=== PATIENT | female | born 2000 | race Caucasian/White ===

== ENCOUNTER 2023-02-15 07:04 | Observation (INO) | payer OTHER, SELFPAY ==
[2023-02-15] VITALS (8 sets, daily range): BP systolic 103–121; BP diastolic 61–86; PULSE 83–117; RESP 16–18; TEMP 36.4–38.1; O2SAT 96–100; BMI 22.3
--- NOTE | 2023-02-15 07:29 | ED.FEVER ---
HPI - Fever General Chief Complaint: Fever Stated Complaint: fever 4 days Time Seen by Provider: 02/15/23 07:25 History of Present Illness HPI Narrative: Patient brought here by boyfriend from home for complains of fever for the past 4 days with nausea and vomiting. Has had off and on diffuse abdominal cramping. No cough cold congestion. No sore throat. Denies any sick contacts. No contaminated foods. No recent foreign travel. Patient denies any abdominal surgical history. Pain is diffuse anteriorly does not radiate. Patient denies any urinary frequency or dysuria. Pain is intermittent and waxing and waning. Denies any discomfort at this time. Patient states it feels like her menstrual cramps. Which she states is currently on her menses Related Data Home Medications Medication Instructions Recorded Confirmed desogestrel 0.15 mg-ethinyl 1 tab PO DAILY 02/16/23 02/16/23 estradiol 0.03 mg tablet (Isibloom) Previous Rx's Medication Instructions Recorded levofloxacin 750 mg tablet 750 mg PO DAILY #7 tabs 02/16/23 ondansetron 4 mg disintegrating 4 mg PO Q8H PRN nausea and 02/16/23 tablet vomiting #14 tabs Allergies Allergy/AdvReac Type Severity Reaction Status Date / Time No Known Drug Allergies Allergy Verified 02/15/23 07:30 Review of Systems Review of Systems Narrative: GENERAL: Positive chills, fatigue, malaise, fever, sweats. HEENT: negative sinus pain, ear pain, sore throat RESPIRATORY: negative dyspnea, cough CARDIOVASCULAR: negative chest pain, palpitations GASTROINTESTINAL: Pause nausea, vomiting, abdominal pain, negative diarrhea : negative dysuria, frequency, hematuria MUSCULOSKELETAL: negative muscle or bony pain SKIN: negative rash, skin lesions NEUROLOGIC: negative weakness, numbness ROS Unobtainable: All systems reviewed & are unremarkable except as noted in HPI and below Patient History Social History household members: significant other Smoking Status: Never smoker alcohol intake: current Exam Narrative Exam Narrative: GENERAL: in no distress, not toxic not dyspneic HEAD: Normocephalic. EYES: Pupils equal round ENT: Mucous membranes moist. NECK: Trachea midline. CARDIOVASCULAR: Tachycardia with Regular rate and rhythm without murmurs RESPIRATORY: Clear to auscultation. Breath sounds equal bilaterally. No wheezes, rales, or rhonchi. GASTROINTESTINAL: Abdomen soft, non-tender, no peritoneal signs, no pain out of proportion to exam. No McBurney point tenderness. No CVA tenderness. Bowel sounds are present. EXTREMITIES: No gross deformities. BACK: No flank tenderness. NEURO: AOx4. SKIN: Warm and dry PSYCH: Not anxious, is cooperative Initial Vital Signs Initial Vital Signs: Vital Signs Temperature 97.6 F 02/15/23 07:15 Pulse Rate 117 H 02/15/23 07:15 Respiratory Rate 16 02/15/23 07:15 Blood Pressure 121/86 02/15/23 07:15 Pulse Oximetry 97 02/15/23 07:15 Oxygen Delivery Method Room Air 02/15/23 07:15 Course Orders Ordered: Discontinued Medications Acetaminophen (Acetaminophen 325 Mg Tablet) 650 mg PO Q6H PRN PRN Reason: Fever/Mild Pain (1-3) Last Admin: 02/16/23 11:30 Dose: 650 mg Documented By: Admin: 02/16/23 01:29 Dose: 650 mg Documented By: Admin: 02/15/23 16:30 Dose: 650 mg Documented By: JAKE Hydrocodone Bitart/Acetaminophen (Hydrocodone/Acet 5/325 Tablet) 1 tab PO Q4H PRN PRN Reason: Pain, Moderate (4-6) Last Admin: 02/16/23 01:31 Dose: 1 tab Documented By: Admin: 02/15/23 16:31 Dose: 1 tab Documented By: Admin: 02/15/23 12:21 Dose: 1 tab Documented By: MICHELE Sodium Chloride (Normal Saline 0.9%) 1,000 mls @ 1,000 mls/hr IV BOLUS ONE Stop: 02/15/23 08:27 Last Infusion: 02/15/23 08:24 Dose: 0 mls/hr Documented By: Admin: 02/15/23 07:37 Dose: 1,000 mls/hr Documented By: ANUPAMA Sodium Chloride (Normal Saline 0.9%) 1,000 mls @ 1,000 mls/hr IV BOLUS ONE Stop: 02/15/23 09:21 Last Infusion: 02/15/23 09:25 Dose: 0 mls/hr Documented By: Admin: 02/15/23 08:28 Dose: 1,000 mls/hr Documented By: ANUPAMA Ceftriaxone Sodium 2,000 mg/ (Sodium Chloride) 100 mls @ 200 mls/hr IV NOW ONE Stop: 02/15/23 09:35 Last Infusion: 02/15/23 10:37 Dose: 0 mls/hr Documented By: Admin: 02/15/23 10:00 Dose: 200 mls/hr Documented By: ANUPAMA Sodium Chloride (Normal Saline 0.9%) 1,000 mls @ 100 mls/hr IV CONT CLAIRE Last Admin: 02/16/23 11:28 Dose: 100 mls/hr Documented By: Infusion: 02/16/23 08:42 Dose: 100 mls/hr Documented By: Admin: 02/15/23 22:42 Dose: 100 mls/hr Documented By: Infusion: 02/15/23 22:23 Dose: 0 mls/hr Documented By: Admin: 02/15/23 12:23 Dose: 100 mls/hr Documented By: MICHELE Ceftriaxone Sodium 1,000 mg/ (Sodium Chloride) 100 mls @ 200 mls/hr IV Q24H [facility] Last Infusion: 02/16/23 11:25 Dose: 0 mls/hr Documented By: Admin: 02/16/23 10:06 Dose: 200 mls/hr Documented By: DAVIDA POTASSIUM CHLORIDE IN WATER (Potassium Cl 10 Meq/100 Ml Joy) 10 meq in 100 mls @ 100 mls/hr IV Q1H CLAIRE Stop: 02/15/23 21:14 Last Admin: 02/15/23 22:34 Dose: 100 mls/hr Documented By: Infusion: 02/15/23 22:32 Dose: 0 mls/hr Documented By: Admin: 02/15/23 21:27 Dose: 100 mls/hr Documented By: Infusion: 02/15/23 21:22 Dose: 75 mls/hr Documented By: Infusion: 02/15/23 20:03 Dose: 75 mls/hr Documented By: Admin: 02/15/23 20:01 Dose: 50 mls/hr Documented By: Infusion: 02/15/23 18:50 Dose: 50 mls/hr Documented By: Infusion: 02/15/23 18:38 Dose: 50 mls/hr Documented By: Admin: 02/15/23 17:44 Dose: 100 mls/hr Documented By: JAKE Ketorolac Tromethamine (Ketorolac 30 Mg/Ml Vial) 15 mg IV NOW ONE Stop: 02/15/23 07:32 Last Admin: 02/15/23 07:37 Dose: 15 mg Documented By: ANUPAMA Lorazepam (Lorazepam 2 Mg/Ml Inj) 0.5 mg IV NOW ONE Stop: 02/15/23 17:33 Last Admin: 02/15/23 17:43 Dose: 0.5 mg Documented By: JAKE Morphine Sulfate (Morphine 4 Mg/Ml Inj) 4 mg IV NOW ONE Stop: 02/15/23 08:23 Last Admin: 02/15/23 08:28 Dose: 4 mg Documented By: ANUPAMA Naloxone HCl (Naloxone 0.4 Mg/Ml Vial) 0.2 mg IV Q2MIN PRN PRN Reason: Opiate Reversal Ondansetron HCl (Ondansetron 4 Mg/2 Ml Inj) 4 mg IV NOW PRN PRN Reason: Nausea And Vomiting Ondansetron HCl (Ondansetron 4 Mg/2 Ml Inj) 4 mg IV Q8HR PRN PRN Reason: Nausea And Vomiting Last Admin: 02/16/23 10:06 Dose: 4 mg Documented By: DAVIDA Vital Signs Vital signs: Vital Signs - 8 hr 02/15/23 07:15 Temperature 97.6 F Pulse Rate 117 H Respiratory Rate 16 Blood Pressure 121/86 Pulse Oximetry 97 Oxygen Delivery Method Room Air MDM - Fever Lab Data 02/16/23 05:14 02/16/23 05:14 Labs: Lab Results 02/15/23 02/15/23 02/15/23 Range/Units 07:18 07:26 07:26 WBC 16.0 H (4.5-11.0) X10^3/uL RBC 4.11 (4.0-5.2) X10^6/uL Hgb 10.8 L (12.0-16.0) g/dL Hct 32.8 L (36-46) % MCV 80.0 (80-100) fL MCH 26.2 (26-34) PG MCHC 32.8 (30-36) % RDW 16.1 H (11.6-14.8) % Plt Count 160 (150-400) X10^3/uL Neut % (Auto) 78.8 H (50-75) % Lymph % (Auto) 4.5 L (25-40) % [place] % (Auto) 16.4 H (3-14) % Eos % (Auto) 0.0 L (2-4) % Baso % (Auto) 0.3 (0-2) % Neut # (Auto) 15644 H (9158-2490) /uL Lymph # (Auto) 700 L (9273-8159) /uL [place] # (Auto) 2600 H (0-900) /uL Eos # (Auto) 0 (0-450) /uL Baso # (Auto) 0 (0-100) /uL Sodium 132 L (137-145) mmol/L Potassium 3.3 L (3.4-5.1) mmol/L Chloride 100 (98-107) mmol/L Carbon Dioxide 20 L (22-32) mmol/L BUN 6 L (7-17) mg/dL Creatinine 0.70 (0.52-1.04) mg/dL Estimated GFR > 60 (>60) mL/min BUN/Creatinine Ratio 8.6 (6-22) Glucose 148 H (70-100) mg/dL Lactate (0.7-2.1) mmol/L Calcium 8.9 (8.4-10.2) mg/dL Magnesium (1.6-2.3) mg/dL Total Bilirubin 0.5 (0.2-1.3) mg/dL AST 24 (14-36) IU/L ALT 20 (<35) IU/L Alkaline Phosphatase 80 (38-126) U/L Total Protein 7.1 (6.3-8.2) g/dL Albumin 3.8 (3.5-5.0) g/dL Globulin 3.3 (1.7-4.1) g/dL Albumin/Globulin Ratio 1.2 (1.0-2.8) Lipase 50 (23-300) U/L Procalcitonin (<0.5) ng/mL Urine RBC 1-5/hpf (0-5/HPF) Urine WBC 10-30/hpf H (0-5/HPF) Ur Squamous Epith Cells 1-5 /hpf (0-5/HPF) Urine Bacteria Few (2-10) H (None) Ur Culture Indicated? Specimen cultured Chlamy pneumoniae PCR (Not Detect) Adenovirus (PCR) (Not Detect) B. pertussis DNA (PCR) (Not Detecte) B.parapertussis DNA PCR (Not Detecte) Coronavirus OC43 (PCR) (Not Detect) Coronavirus HKU1 (PCR) (Not Detect) Coronavirus 229E (PCR) (Not Detect) SARS-CoV-2 (PCR) (Not Detecte) Coronavirus NL63 (PCR) (Not Detect) Human Metapneumovir PCR (Not Detect) Influenza Type A (PCR) (Not Detect) Influenza Type B (PCR) (Not Detect) M. pneumoniae (PCR) (Not Detect) Parainfluenza 1 (PCR) (Not Detect) Parainfluenza 2 (PCR) (Not Detect) Parainfluenza 3 (PCR) (Not Detect) Parainfluenza 4 (PCR) (Not Detect) RSV (PCR) (Not Detect) Entero/Rhino (PCR) (Not Detect) 02/15/23 02/15/23 02/15/23 Range/Units 07:26 07:26 07:26 WBC (4.5-11.0) X10^3/uL RBC (4.0-5.2) X10^6/uL Hgb (12.0-16.0) g/dL Hct (36-46) % MCV (80-100) fL MCH (26-34) PG MCHC (30-36) % RDW (11.6-14.8) % Plt Count (150-400) X10^3/uL Neut % (Auto) (50-75) % Lymph % (Auto) (25-40) % [place] % (Auto) (3-14) % Eos % (Auto) (2-4) % Baso % (Auto) (0-2) % Neut # (Auto) (1360-2236) /uL Lymph # (Auto) (1297-6029) /uL [place] # (Auto) (0-900) /uL Eos # (Auto) (0-450) /uL Baso # (Auto) (0-100) /uL Sodium (137-145) mmol/L Potassium (3.4-5.1) mmol/L Chloride (98-107) mmol/L Carbon Dioxide (22-32) mmol/L BUN (7-17) mg/dL Creatinine (0.52-1.04) mg/dL Estimated GFR (>60) mL/min BUN/Creatinine Ratio (6-22) Glucose (70-100) mg/dL Lactate 0.9 (0.7-2.1) mmol/L Calcium (8.4-10.2) mg/dL Magnesium 1.9 (1.6-2.3) mg/dL Total Bilirubin (0.2-1.3) mg/dL AST (14-36) IU/L ALT (<35) IU/L Alkaline Phosphatase (38-126) U/L Total Protein (6.3-8.2) g/dL Albumin (3.5-5.0) g/dL Globulin (1.7-4.1) g/dL Albumin/Globulin Ratio (1.0-2.8) Lipase (23-300) U/L Procalcitonin 1.00 H (<0.5) ng/mL Urine RBC (0-5/HPF) Urine WBC (0-5/HPF) Ur Squamous Epith Cells (0-5/HPF) Urine Bacteria (None) Ur Culture Indicated? Chlamy pneumoniae PCR (Not Detect) Adenovirus (PCR) (Not Detect) B. pertussis DNA (PCR) (Not Detecte) B.parapertussis DNA PCR (Not Detecte) Coronavirus OC43 (PCR) (Not Detect) Coronavirus HKU1 (PCR) (Not Detect) Coronavirus 229E (PCR) (Not Detect) SARS-CoV-2 (PCR) (Not Detecte) Coronavirus NL63 (PCR) (Not Detect) Human Metapneumovir PCR (Not Detect) Influenza Type A (PCR) (Not Detect) Influenza Type B (PCR) (Not Detect) M. pneumoniae (PCR) (Not Detect) Parainfluenza 1 (PCR) (Not Detect) Parainfluenza 2 (PCR) (Not Detect) Parainfluenza 3 (PCR) (Not Detect) Parainfluenza 4 (PCR) (Not Detect) RSV (PCR) (Not Detect) Entero/Rhino (PCR) (Not Detect) 02/15/23 Range/Units 07:28 WBC (4.5-11.0) X10^3/uL RBC (4.0-5.2) X10^6/uL Hgb (12.0-16.0) g/dL Hct (36-46) % MCV (80-100) fL MCH (26-34) PG MCHC (30-36) % RDW (11.6-14.8) % Plt Count (150-400) X10^3/uL Neut % (Auto) (50-75) % Lymph % (Auto) (25-40) % [place] % (Auto) (3-14) % Eos % (Auto) (2-4) % Baso % (Auto) (0-2) % Neut # (Auto) (9535-7878) /uL Lymph # (Auto) (5302-2729) /uL [place] # (Auto) (0-900) /uL Eos # (Auto) (0-450) /uL Baso # (Auto) (0-100) /uL Sodium (137-145) mmol/L Potassium (3.4-5.1) mmol/L Chloride (98-107) mmol/L Carbon Dioxide (22-32) mmol/L BUN (7-17) mg/dL Creatinine (0.52-1.04) mg/dL Estimated GFR (>60) mL/min BUN/Creatinine Ratio (6-22) Glucose (70-100) mg/dL Lactate (0.7-2.1) mmol/L Calcium (8.4-10.2) mg/dL Magnesium (1.6-2.3) mg/dL Total Bilirubin (0.2-1.3) mg/dL AST (14-36) IU/L ALT (<35) IU/L Alkaline Phosphatase (38-126) U/L Total Protein (6.3-8.2) g/dL Albumin (3.5-5.0) g/dL Globulin (1.7-4.1) g/dL Albumin/Globulin Ratio (1.0-2.8) Lipase (23-300) U/L Procalcitonin (<0.5) ng/mL Urine RBC (0-5/HPF) Urine WBC (0-5/HPF) Ur Squamous Epith Cells (0-5/HPF) Urine Bacteria (None) Ur Culture Indicated? Chlamy pneumoniae PCR Not detected (Not Detect) Adenovirus (PCR) Not detected (Not Detect) B. pertussis DNA (PCR) Not detected (Not Detecte) B.parapertussis DNA PCR Not detected (Not Detecte) Coronavirus OC43 (PCR) Not detected (Not Detect) Coronavirus HKU1 (PCR) Not detected (Not Detect) Coronavirus 229E (PCR) Not detected (Not Detect) SARS-CoV-2 (PCR) Not detected (Not Detecte) Coronavirus NL63 (PCR) Not detected (Not Detect) Human Metapneumovir PCR Not detected (Not Detect) Influenza Type A (PCR) Not detected (Not Detect) Influenza Type B (PCR) Not detected (Not Detect) M. pneumoniae (PCR) Not detected (Not Detect) Parainfluenza 1 (PCR) Not detected (Not Detect) Parainfluenza 2 (PCR) Not detected (Not Detect) Parainfluenza 3 (PCR) Not detected (Not Detect) Parainfluenza 4 (PCR) Not detected (Not Detect) RSV (PCR) Not detected (Not Detect) Entero/Rhino (PCR) Not detected (Not Detect) Point of Care Testing Test Results Negative Urine Dip Bedside Urine Glucose Negative Bedside Urine Bilirubin - Negative Bedside Urine Ketone +++ 80 Urine Specific [place] 1.015 Bedside Urine Occult Blood + Bedside Urine pH 6.0 Bedside Urine Protein +/- 15 Bedside Urine Urobilinogen - Negative Bedside Urine Nitrite - Negative Bedside Urine Leukocytes ++ [address] scan - abdomen/pelvis: Radiologist's Impression: [place] [address] CT Scan Report Signed Patient: Cecile Hernandez MR#: [id number] : 2000 Acct:[id number] Age/Sex: 22 / F Date of Service: 02/15/23 Loc: ED Accession Number: [id number] ?? Procedure: CT abdomen pelvis w con Ordering Provider: Kentrell Hicks MD PROCEDURE:? CT ABDOMEN PELVIS W CON ? INDICATIONS:? IV contrast only/abdominal pain/fever ? TECHNIQUE:? After the administration of intravenous contrast, axial sections acquired from the lung bases to the pubic symphysis.? Coronal and sagittal reformats were performed.? For radiation dose reduction, the following was used:? automated exposure control, adjustment of mA and/or kV according to patient size.? ? COMPARISON:? None. ? FINDINGS:? Image quality:? Excellent.? ? Lung bases:? Unremarkable. Heart:? No significant findings. ? ABDOMEN: Liver:? Unremarkable.? ? Gallbladder:? Unremarkable.? ? Biliary ducts:? Unremarkable.? ? Pancreas:? Unremarkable.? ? Spleen:? Unremarkable.? ? Adrenal Glands:? Unremarkable.? ? Kidneys and Ureters:? There is a delayed, somewhat striated nephrogram in the upper pole of the left kidney with an appearance of questionable edema suggesting pyelonephritis of the left kidney.? There is also similar abnormal appearance of the posterior lower pole of the left kidney, as well.? Right kidney and ureter are unremarkable.? There is no hydronephrosis. ? Stomach and Bowel:? Stomach, small bowel loops, and colon are unremarkable.? Peritoneum:? No abnormal intraperitoneal fluid.? No free air.? ? Ventral Wall: ? No hernias.? Abdominal Nodes:? No retroperitoneal or mesenteric adenopathy by size criteria.? Vessels:? Aorta and inferior vena cava are normal in size.? ? PELVIS: Pelvic Organs:? Unremarkable.? ? Bladder:? Unremarkable.? ? Pelvic Nodes: No enlarged lymph nodes.? Miscellaneous: No hernias are seen. ? ? ? Bones:? Unremarkable.? IMPRESSION:? ? 1. Acute pyelonephritis of the left kidney.? No associated hydronephrosis.? No identifiable renal stone. ? ? Dictated by: Venkatesh Velazquez M.D. on 02/15/2023 at 8:53 ? ? Approved by: Venkatesh Velazquez M.D. on 02/15/2023 at 8:56 ? [facility] Narrative Medical decision making narrative: Patient brought here by boyfriend from home for complains of fever for the past 4 days with nausea and vomiting. Has had off and on diffuse abdominal cramping. No cough cold congestion. No sore throat. Denies any sick contacts. No contaminated foods. No recent foreign travel. Patient denies any abdominal surgical history. Pain is diffuse anteriorly does not radiate. Patient denies any urinary frequency or dysuria. Pain is intermittent and waxing and waning. Denies any discomfort at this time. Patient states it feels like her menstrual cramps. Which she states is currently on her menses After history and exam CBC CMP urinalysis test viral swab normal saline Zofran Toradol [facility] CC: Fever abdominal cramping vomiting Complicating co-morbidities: Data collected from: Patient Medical records reviewed: No recent visits for this complaint Differential considered: Includes but not limited to appendicitis viral gastroenteritis UTI cholecystitis pancreatitis Exam documented above, pertinent findings include: Abdomen is soft nontender. Tachycardia likely due to dehydration Lab Test results independently reviewed as above. Pertinent findings: WBC 16 hemoglobin 10.8 hematocrit 32.8 sodium 132 potassium 3.3 BUN 6 creatinine 0.7 GFR greater than 60 viral swab negative, urinalysis WBC 10-30, urine ketone greater than 80 positive leukocytes Imaging studies independently reviewed: CT abdomen pelvis acute pyelonephritis of the left kidney. No hydronephrosis. Consultations: Reviewed with hospitalist, agrees for admission Treatments: Normal saline Zofran Toradol Re-evaluations: 9:30 a.m.. Reviewed results with patient and boyfriend. They do agree for admission for kidney infection. Pain and nausea controlled at this time. Discussion: Appropriate for admission for IV antibiotics nausea control with IV hydration and pain control. Patient agrees with treatment plan. Vital signs are stable. Antibiotics have been started in the department. IV hydration started as well. Pain is controlled as well as nausea is controlled but patient likely not able to sustain and tolerate outpatient management. Patient agrees for admission. Reviewed with hospitalist and agrees for admission. Diagnosis: Acute pyelonephritis Discharge Plan Departure Patient Disposition: Admitted as Observation Clinical Impression: Pyelonephritis Admit Date/Time: 02/15/23 10:25 Admit Provider: Raya Dominguez
[2023-02-15] MEDS: SODIUM CHLORIDE 0.9% 1,000 ML 1000 ML IV ×2 (07:37→08:28)
[2023-02-15] MEDS: KETOROLAC 30 MG/ML VIAL 15 MG IV (07:37)
[2023-02-15 07:40] LABS: Add Manual Diff / Slide Review NO; Basophils Absolute Auto 0 /uL (0-100); Basophils Percent Auto 0.3 % (0-2); Eosinophils Absolute Auto 0 /uL (0-450); Hematocrit 32.8 % (36-46); Hemoglobin 10.8 g/dL (12.0-16.0); Lymphocytes Absolute Auto 700 /uL (1100-4500); Lymphocytes Percent Auto 4.5 % (25-40); Mean Corpuscular HGB Conc 32.8 % (30-36); Mean Corpuscular Hemoglobin 26.2 PG (26-34); Monocytes Absolute Auto 2600 /uL (0-900); Monocytes Percent Auto 16.4 % (3-14); Neutrophils Absolute Auto 12600 /uL (1500-7000); Neutrophils Percent Auto 78.8 % (50-75); Platelet Count 160 X10^3/uL (150-400); Red Blood Cell Count 4.11 X10^6/uL (4.0-5.2); Red Cell Distribution Width 16.1 % (11.6-14.8)
[2023-02-15 07:56] LABS: Alanine Aminotransferase 20 IU/L (<35); Albumin 3.8 g/dL (3.5-5.0); Albumin Globulin Ratio 1.2 (1.0-2.8); Alkaline Phosphatase 80 U/L (38-126); Aspartate Aminotransferase 24 IU/L (14-36); BUN Creatinine Ratio 8.6 (6-22); Bilirubin Total 0.5 mg/dL (0.2-1.3); Blood Urea Nitrogen 6 mg/dL (7-17); Calcium 8.9 mg/dL (8.4-10.2); Carbon Dioxide 20 mmol/L (22-32); Chloride 100 mmol/L (98-107); Estimated Glomerular Filt Rate > 60 mL/min (>60); Globulin 3.3 g/dL (1.7-4.1); Glucose 148 mg/dL (70-100); HEMOLYSIS < 15 (0-50); Lipase 50 U/L (23-300); Potassium 3.3 mmol/L (3.4-5.1); Sodium 132 mmol/L (137-145); Total Protein 7.1 g/dL (6.3-8.2)
[2023-02-15 08:17] LABS: RBC Urine 1-5/HPF (0-5/HPF); Squamous Epithelial Cell Urine 1-5 /HPF (0-5/HPF); WBC Urine 10-30/HPF (0-5/HPF)
[2023-02-15 08:18] LABS: Bacteria Urine Few (2-10); Culture Indicated Urine Specimen Cultured
--- NOTE | 2023-02-15 08:22 | DI.CT.S_ITS ---
PROCEDURE: CT ABDOMEN PELVIS W CON INDICATIONS: IV contrast only/abdominal pain/fever TECHNIQUE: After the administration of intravenous contrast, axial sections acquired from the lung bases to the pubic symphysis. Coronal and sagittal reformats were performed. For radiation dose reduction, the following was used: automated exposure control, adjustment of mA and/or kV according to patient size. COMPARISON: None. FINDINGS: Image quality: Excellent. Lung bases: Unremarkable. Heart: No significant findings. ABDOMEN: Liver: Unremarkable. Gallbladder: Unremarkable. Biliary ducts: Unremarkable. Pancreas: Unremarkable. Spleen: Unremarkable. Adrenal Glands: Unremarkable. Kidneys and Ureters: There is a delayed, somewhat striated nephrogram in the upper pole of the left kidney with an appearance of questionable edema suggesting pyelonephritis of the left kidney. There is also similar abnormal appearance of the posterior lower pole of the left kidney, as well. Right kidney and ureter are unremarkable. There is no hydronephrosis. Stomach and Bowel: Stomach, small bowel loops, and colon are unremarkable. Peritoneum: No abnormal intraperitoneal fluid. No free air. Ventral Wall: No hernias. Abdominal Nodes: No retroperitoneal or mesenteric adenopathy by size criteria. Vessels: Aorta and inferior vena cava are normal in size. PELVIS: Pelvic Organs: Unremarkable. Bladder: Unremarkable. Pelvic Nodes: No enlarged lymph nodes. Miscellaneous: No hernias are seen. Bones: Unremarkable. IMPRESSION: 1. Acute pyelonephritis of the left kidney. No associated hydronephrosis. No identifiable renal stone. Dictated by: Venkatesh Velazquez M.D. on 02/15/2023 at 8:53 Approved by: Venkatesh Velazquez M.D. on 02/15/2023 at 8:56
[2023-02-15] MEDS: MORPHINE 4 MG/ML INJ IV (08:28)
[2023-02-15 08:35] LABS: Magnesium 1.9 mg/dL (1.6-2.3)
[2023-02-15 09:47] LABS: Lactate (Lactic Acid) 0.9 mmol/L (0.7-2.1)
[2023-02-15 09:50] LABS: Adenovirus Not Detected (Not Detect); B. parapertussis Not Detected (Not Detecte); Bordetella pertussis Not Detected (Not Detecte); Chlamydophila pneumoniae Not Detected (Not Detect); Coronavirus 229E Not Detected (Not Detect); Coronavirus HKU1 Not Detected (Not Detect); Coronavirus NL 63 Not Detected (Not Detect); Coronavirus OC43 Not Detected (Not Detect); Human Metapneumovirus Not Detected (Not Detect); Human Rhinovirus/Enterovirus Not Detected (Not Detect); Influenza A Not Detected (Not Detect); Influenza B Not Detected (Not Detect); Mycoplasma pneumoniae Not Detected (Not Detect); Parainfluenza Virus 1 Not Detected (Not Detect); Parainfluenza Virus 2 Not Detected (Not Detect); Parainfluenza Virus 3 Not Detected (Not Detect); Parainfluenza Virus 4 Not Detected (Not Detect); Respiratory Syncytial Virus Not Detected (Not Detect); SARS- CoV-2 Not Detected (Not Detecte)
--- NOTE | 2023-02-15 09:59 | PC.NURSE ---
Lab in to draw 2nd blood culture
[2023-02-15] MEDS: cefTRIAXone 2,000 MG in SODIUM CHLORIDE 0.9% 100 ML 200 MG IV (10:00)
[2023-02-15] MEDS: HYDROCODONE/ACET 5/325 TABLET 1 TAB PO ×2 (12:21→16:31)
[2023-02-15] MEDS: SODIUM CHLORIDE 0.9% 1,000 ML 100 ML IV ×2 (12:23→22:42)
--- NOTE | 2023-02-15 12:39 | PC.NURSE ---
Addendum entered by Renata Baca R.N. 02/15/23 18:38: Patient teary eyed and stressed out earlier when talking to the doctor. Given ativan 0.5mg for anxiety and nausea. This has been helpful to her. She is doing better. She has iv potassium infusing at 50cc/hr and tolerating this well. Patient is getting a total of 40meq potassium iv riders. Boyfriend at bedside. Original Note: Patient tearful and complains of a headache 6/10 discomfort. Ate some pudding and given 1 vicodin for comfort. Patient shivering, given warm blankets and wants to try and nap. She has NS at 100cc/hr and is tolerating this well. Will recheck her temperature soon.
[2023-02-15] MEDS: ACETAMINOPHEN 325 MG TABLET 650 MG PO (16:30)
--- NOTE | 2023-02-15 17:32 | PM.HP.1 ---
History of Present Illness History of Present Illness Chief complaint: fever 4 days Narrative: 22-year-old female with no significant medical history who presented to the emergency department with fevers, lower abdominal pain, and left flank pain. Patient reports she recently moved from [place] to [place]. She works as a kayak guide. She notes she had started a new oral contraceptive pill. She started her withdrawal cycle on Wednesday. She notes she developed some increasing abdominal pain and mild chills on Wednesday. She began feeling a bit more poorly on with low-grade fevers. Yesterday, she continued to worsen and she states she was unable to sleep last night secondary to pain. She presented to the emergency department this morning with a temp of 97.6?, heart rate 117, respiratory rate 16, BP 121/86. White blood cell count was 16.0. Hemoglobin 10.8. Platelet count 160. Sodium 132. Potassium 3.3. Chloride 100, bicarb 20, BUN 6, creatinine 0.7. Glucose was 148. LFTs were within normal limits. Procalcitonin was elevated at 1.00. UA revealed 10-30 white blood cells per high-power field, few bacteria, 1-5 red blood cells per high-powered field. Respiratory viral panel was negative. Abdominal pelvic CT revealed an acute pyelonephritis of the left kidney. No associated hydronephrosis. No stone identified. Patient was given 15 mg of IV Toradol, 2 L of normal saline, a dose of IV Zofran, and 2 g of IV Rocephin. He additionally received morphine 4 mg IV. Admission was recommended Patient reports she is feeling a bit worse than she was earlier today, but much better than last night. She is continuing to feel febrile. She is having some chills. She has tolerated a clear liquid tray now has a full liquid tray at bedside for dinner. She continues to have left flank pain. She denies any significant history of urinary tract infections. She states she will sometimes get dysuria after having ?a lot of sex?. [facility] Social History household members: significant other Smoking Status: Never smoker alcohol intake: current Comment: Past medical history: Denied Family history: Grandmother had dementia and frequent UTIs Mother had some type of renal issue that resulted in a biopsy but no diagnosis. No significant infection history Social history: As noted above, she is a kayak guide. She is a nonsmoker. Drinks occasional alcohol. Lives with her boyfriend, Felix. Meds Home Medications and Allergies Allergies Allergy/AdvReac Type Severity Reaction Status Date / Time No Known Drug Allergies Allergy Verified 02/15/23 07:30 Review of Systems Review of Systems Narrative: All other systems were reviewed negative Exam Vital Signs (past 8 hours): - 02/15/23 10:03 02/15/23 10:02 02/15/23 10:02 Temperature 98.8 F Pulse Rate 83 86 Respiratory Rate 16 Blood Pressure 103/61 103/61 Pulse Oximetry 99 99 Oxygen Delivery Method Room Air Room Air 02/15/23 10:30 02/15/23 10:30 02/15/23 12:24 Temperature 98.6 F Pulse Rate 85 Respiratory Rate Blood Pressure 104/67 Pulse Oximetry 100 Oxygen Delivery Method Oxygen Delivery Method Room Air Narrative Exam Narrative: GEN: Tearful and anxious ill-appearing adult female, Alert and oriented x3 HEENT: Normocephalic, face symmetric, pupils equal round reactive to light, extraocular movements intact, sclerae anicteric, conjunctiva clear, nares patent, oropharynx reveals an intact soft and hard palate with moist mucous membranes, dentition is fair NECK: Supple, no lymphadenopathy, thyroid without enlargement or nodularity, carotids no bruits CHEST: Respiratory excursions symmetric, clear to auscultation bilaterally CV: Regular rate and rhythm, no murmurs, rubs, gallops, PMI nondisplaced ABD: Soft, mild suprapubic and left flank tenderness,, nondistended, bowel sounds present in all 4 quadrants, no organomegaly or masses appreciated, positive left CVA tenderness EXTR: Warm, well perfused, no clubbing/cyanosis/edema SKIN: Warm and dry, without rash NEURO: Alert and oriented x3, grossly intact PSYCH: Mood and affect is within normal limits, judgment and insight are appropriate Objective Labs 02/15/23 07:26 02/15/23 07:26 Labs: Laboratory Results - last 24 hr 02/15/23 02/15/23 02/15/23 07:18 07:26 07:26 WBC 16.0 H RBC 4.11 Hgb 10.8 L Hct 32.8 L MCV 80.0 MCH 26.2 MCHC 32.8 RDW 16.1 H Plt Count 160 Neut % (Auto) 78.8 H Lymph % (Auto) 4.5 L [place] % (Auto) 16.4 H Eos % (Auto) 0.0 L Baso % (Auto) 0.3 Neut # (Auto) 48627 H Lymph # (Auto) 700 L [place] # (Auto) 2600 H Eos # (Auto) 0 Baso # (Auto) 0 Sodium 132 L Potassium 3.3 L Chloride 100 Carbon Dioxide 20 L BUN 6 L Creatinine 0.70 Estimated GFR > 60 BUN/Creatinine Ratio 8.6 Glucose 148 H Lactate Calcium 8.9 Magnesium Total Bilirubin 0.5 AST 24 ALT 20 Alkaline Phosphatase 80 Total Protein 7.1 Albumin 3.8 Globulin 3.3 Albumin/Globulin Ratio 1.2 Lipase 50 Procalcitonin Urine RBC 1-5/hpf Urine WBC 10-30/hpf H Ur Squamous Epith Cells 1-5 /hpf Urine Bacteria Few (2-10) H Ur Culture Indicated? Specimen cultured Chlamy pneumoniae PCR Adenovirus (PCR) B. pertussis DNA (PCR) B.parapertussis DNA PCR Coronavirus OC43 (PCR) Coronavirus HKU1 (PCR) Coronavirus 229E (PCR) SARS-CoV-2 (PCR) Coronavirus NL63 (PCR) Human Metapneumovir PCR Influenza Type A (PCR) Influenza Type B (PCR) M. pneumoniae (PCR) Parainfluenza 1 (PCR) Parainfluenza 2 (PCR) Parainfluenza 3 (PCR) Parainfluenza 4 (PCR) RSV (PCR) Entero/Rhino (PCR) 02/15/23 02/15/23 02/15/23 07:26 07:26 07:26 WBC RBC Hgb Hct MCV MCH MCHC RDW Plt Count Neut % (Auto) Lymph % (Auto) [place] % (Auto) Eos % (Auto) Baso % (Auto) Neut # (Auto) Lymph # (Auto) [place] # (Auto) Eos # (Auto) Baso # (Auto) Sodium Potassium Chloride Carbon Dioxide BUN Creatinine Estimated GFR BUN/Creatinine Ratio Glucose Lactate 0.9 Calcium Magnesium 1.9 Total Bilirubin AST ALT Alkaline Phosphatase Total Protein Albumin Globulin Albumin/Globulin Ratio Lipase Procalcitonin 1.00 H Urine RBC Urine WBC Ur Squamous Epith Cells Urine Bacteria Ur Culture Indicated? Chlamy pneumoniae PCR Adenovirus (PCR) B. pertussis DNA (PCR) B.parapertussis DNA PCR Coronavirus OC43 (PCR) Coronavirus HKU1 (PCR) Coronavirus 229E (PCR) SARS-CoV-2 (PCR) Coronavirus NL63 (PCR) Human Metapneumovir PCR Influenza Type A (PCR) Influenza Type B (PCR) M. pneumoniae (PCR) Parainfluenza 1 (PCR) Parainfluenza 2 (PCR) Parainfluenza 3 (PCR) Parainfluenza 4 (PCR) RSV (PCR) Entero/Rhino (PCR) 02/15/23 07:28 WBC RBC Hgb Hct MCV MCH MCHC RDW Plt Count Neut % (Auto) Lymph % (Auto) [place] % (Auto) Eos % (Auto) Baso % (Auto) Neut # (Auto) Lymph # (Auto) [place] # (Auto) Eos # (Auto) Baso # (Auto) Sodium Potassium Chloride Carbon Dioxide BUN Creatinine Estimated GFR BUN/Creatinine Ratio Glucose Lactate Calcium Magnesium Total Bilirubin AST ALT Alkaline Phosphatase Total Protein Albumin Globulin Albumin/Globulin Ratio Lipase Procalcitonin Urine RBC Urine WBC Ur Squamous Epith Cells Urine Bacteria Ur Culture Indicated? Chlamy pneumoniae PCR Not detected Adenovirus (PCR) Not detected B. pertussis DNA (PCR) Not detected B.parapertussis DNA PCR Not detected Coronavirus OC43 (PCR) Not detected Coronavirus HKU1 (PCR) Not detected Coronavirus 229E (PCR) Not detected SARS-CoV-2 (PCR) Not detected Coronavirus NL63 (PCR) Not detected Human Metapneumovir PCR Not detected Influenza Type A (PCR) Not detected Influenza Type B (PCR) Not detected M. pneumoniae (PCR) Not detected Parainfluenza 1 (PCR) Not detected Parainfluenza 2 (PCR) Not detected Parainfluenza 3 (PCR) Not detected Parainfluenza 4 (PCR) Not detected RSV (PCR) Not detected Entero/Rhino (PCR) Not detected Assessment & Plan Assessment & Plan narrative: 1. Left-sided acute pyelonephritis UA was not done but a point of care dipstick was which was consistent with UTI. Will send a UA and culture. She received IV Rocephin in the emergency department. This will be continued. Continue IV fluids for hydration. Antiemetics and analgesics as needed. Discussed ways of reducing UTIs including urinating after intercourse, wiping from front to back, staying well hydrated and voiding frequently. Discussed possible [id number] options such as cranberry extract and azo. 2. Sepsis Patient presents with leukocytosis, tachycardia, pyelonephritis, elevated procalcitonin and fever. She presently has a temp of 100.5?. Blood and urine cultures have been ordered. 3. Hypokalemia Will replete IV as she has had ongoing nausea. Recheck in the morning. 4. Hyponatremia Mild, likely secondary to dehydration 5. Hyperglycemia Likely stress induced. Will recheck on morning labs 6. Normocytic anemia MCV is just barely normal at 80. She is presently menstruating. Likely it is due to acute blood loss from her menses. Code status Full Prophylaxis Low Leia score Disposition Admit to acute care, inpatient status
[2023-02-15] MEDS: LORazepam 2 MG/ML INJ 0.5 MG IV (17:43)
[2023-02-15] MEDS: POTASSIUM CHLORIDE IN WATER 10 MEQ/100 ML PIGGYBACK 100 MEQ IV ×3 (17:44→22:34)
[2023-02-15] MEDS: POTASSIUM CHLORIDE IN WATER 10 MEQ/100 ML PIGGYBACK 50 MEQ IV (20:01)
[2023-02-16] VITALS (7 sets, daily range): BP systolic 103–105; BP diastolic 58–73; PULSE 84–112; RESP 18–19; TEMP 36.6–38.2; O2SAT 98
[2023-02-16] MEDS: ACETAMINOPHEN 325 MG TABLET 650 MG PO ×2 (01:29→11:30)
[2023-02-16] MEDS: HYDROCODONE/ACET 5/325 TABLET 1 TAB PO (01:31)
[2023-02-16 05:24] LABS: Add Manual Diff / Slide Review NO; Basophils Absolute Auto 0 /uL (0-100); Basophils Percent Auto 0.3 % (0-2); Eosinophils Absolute Auto 0 /uL (0-450); Eosinophils Percent Auto 0.2 % (2-4); Hematocrit 28.5 % (36-46); Hemoglobin 9.4 g/dL (12.0-16.0); Lymphocytes Absolute Auto 900 /uL (1100-4500); Lymphocytes Percent Auto 8.2 % (25-40); Mean Corpuscular HGB Conc 33.1 % (30-36); Mean Corpuscular Hemoglobin 26.3 PG (26-34); Mean Corpuscular Volume 79.5 fL (80-100); Monocytes Absolute Auto 1800 /uL (0-900); Monocytes Percent Auto 16.2 % (3-14); Neutrophils Absolute Auto 8300 /uL (1500-7000); Neutrophils Percent Auto 75.1 % (50-75); Platelet Count 138 X10^3/uL (150-400); Red Blood Cell Count 3.58 X10^6/uL (4.0-5.2); White Blood Cell Count 11.1 X10^3/uL (4.5-11.0)
[2023-02-16 05:39] LABS: BUN Creatinine Ratio 6.7 (6-22); Blood Urea Nitrogen 4 mg/dL (7-17); Calcium 7.9 mg/dL (8.4-10.2); Carbon Dioxide 21 mmol/L (22-32); Chloride 106 mmol/L (98-107); Estimated Glomerular Filt Rate > 60 mL/min (>60); Glucose 121 mg/dL (70-100); HEMOLYSIS < 15 (0-50); Potassium 3.8 mmol/L (3.4-5.1); Sodium 133 mmol/L (137-145)
[2023-02-16] MEDS: ONDANSETRON 4 MG/2 ML INJ IV (10:06)
[2023-02-16] MEDS: cefTRIAXone 1,000 MG in SODIUM CHLORIDE 0.9% 100 ML 200 MG IV (10:06)
--- NOTE | 2023-02-16 10:27 | CM.DANOTE ---
DCP: Patient is a 22yo female here for Left-sided acute pyelonephritis (H&P, 02/15/23). Payer: [employer] ([employer]) and self pay PCP: None at this time. [facility] URGENT CARE PHYSICIAN reviewed EMR. URGENT CARE PHYSICIAN entered room and introduced self and role. Patient was A/Ox4 and was sitting up in bed resting. Patient was accompanied by boyfriend and emergency contact, Felix Ambrosio ([phone]), who she also lives with. Patient reports feeling better today. She is independent at baseline with all needs and drives her own vehicle. 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 Patient is concerned about being able to afford her follow up medication. URGENT CARE PHYSICIAN provided the information for and encouraged patient to utilize [facility] for her prescription needs. URGENT CARE PHYSICIAN attempted to find in network PCP for patient. Patient reported she [facility] and probably wouldn't follow up with establishing care with a PCP. URGENT CARE PHYSICIAN, patient, and patient boyfriend chatted about the coincidence of all three of us living in [place] and being kayak instructors in the past. Plan: home with boyfriend when medically stable in POV. CM team will continue to follow with needs as necessary. HOLLIE Moreira Discharge Planning/Care Management CM Discharge Assessment Start: 02/16/23 10:25 Freq: Status: Active Protocol: Document 02/16/23 10:26 (Rec: 02/16/23 10:27 [id number]) Discharge Planning Assessment Assigned Service Observer Chief HOLLIE Moreira DPOA/Assigned Designee Name Felix Ambrosio ([email or web address]) Contact Information [phone] Advance Directives? No History Provided By Patient,Significant Other, Medical Record Prior Living Arrangements House Household Members significant other Type of transporation used prior to Drives own vehicle admit Independent with ADL's Yes Is patient alert and oriented? Yes Discharge Plan Home Transportation Arrangement shaquillefriend will drive her home Whiteboard Updated in Patient Room with Yes name and ext. # of Service Observer Chief Review Status In Process Next Review Type Continued Stay Review
[2023-02-16] MEDS: SODIUM CHLORIDE 0.9% 1,000 ML 100 ML IV (11:28)
--- NOTE | 2023-02-16 13:27 | PC.NURSE ---
IV removed-discussed UTI prevention- proper hygiene and hydration. discussed worsening symptoms and when to follow up. Scripts faxed to [facility]. No further questions. PT taken out to private vehicle via w/c.
--- NOTE | 2023-02-17 13:19 | PM.DS.1 ---
History of Present Illness History of Present Illness Chief complaint: fever 4 days Narrative: Per admitting physician: 22-year-old female with no significant medical history who presented to the emergency department with fevers, lower abdominal pain, and left flank pain. Patient reports she recently moved from [place] to [place]. She works as a kayak guide. She notes she had started a new oral contraceptive pill. She started her withdrawal cycle on Wednesday. She notes she developed some increasing abdominal pain and mild chills on Wednesday. She began feeling a bit more poorly on with low-grade fevers. Yesterday, she continued to worsen and she states she was unable to sleep last night secondary to pain. She presented to the emergency department this morning with a temp of 97.6?, heart rate 117, respiratory rate 16, BP 121/86. White blood cell count was 16.0. Hemoglobin 10.8. Platelet count 160. Sodium 132. Potassium 3.3. Chloride 100, bicarb 20, BUN 6, creatinine 0.7. Glucose was 148. LFTs were within normal limits. Procalcitonin was elevated at 1.00. UA revealed 10-30 white blood cells per high-power field, few bacteria, 1-5 red blood cells per high-powered field. Respiratory viral panel was negative. Abdominal pelvic CT revealed an acute pyelonephritis of the left kidney. No associated hydronephrosis. No stone identified. Patient was given 15 mg of IV Toradol, 2 L of normal saline, a dose of IV Zofran, and 2 g of IV Rocephin. He additionally received morphine 4 mg IV. Admission was recommended Patient reports she is feeling a bit worse than she was earlier today, but much better than last night. She is continuing to feel febrile. She is having some chills. She has tolerated a clear liquid tray now has a full liquid tray at bedside for dinner. She continues to have left flank pain. She denies any significant history of urinary tract infections. She states she will sometimes get dysuria after having ?a lot of sex?. Discharge Providers Provider Date of admission: 02/15/23 10:25 Discharge Date: 02/16/23 Discharge provider: Samir Caicedo MD Summary Hospital Course Discharge Diagnosis: 1. Acute pyelonephritis 2. Sepsis, ruled out 3. Hypokalemia 4. Hyponatremia 5. Hyperglycemia 6. Anemia Hospital Course: Ms. Hernandez was admitted with pyelonephritis and started on IV antibiotics. She initially had WBC of 16, but improved to 11 on day of discharge. Her symptoms improved, her pain and nausea were under control. She felt ready to go home. She was able to tolerate oral pills. Urine cultures ultimately grew back group b strep of 10-20k colonies, and e. coli of 30-40k colonies. Discussed with pharmacy and felt that levofloxacin would adequately cover both these bacteria and she was discharged with one week of antibiotics and encouraged to setup a new PCP as she is without one as she has just moved to the area. Exam Vital Signs (past 8 hours): Oxygen Delivery Method Room Air Oxygen Flow Rate 0 Narrative Exam Narrative: GEN: no acute distress CHEST: clear to auscultation bilaterally CV: Regular rate and rhythm, no murmurs ABD: Soft, mild tenderness of suprapubic abdomen, mild tenderness to palpation of left CVA region Objective Labs 02/16/23 05:14 02/16/23 05:14 [facility] Social History household members: significant other Smoking Status: Never smoker alcohol intake: current Discharge Plan Discharge Plan Patient Disposition: Home Provider Discharge Comment: Ms. Hernandez came in to the hospital with an infection of the urine and kidney (pyelonephritis). She should take antibiotics completely for an additional week. She is given zofran for nausea. She is encourage to come back to the ED for further evaluation if she worsens. She is encouraged to setup a new PCP. Discharge orders & Medications Prescriptions: New levofloxacin 750 mg tablet 750 mg PO DAILY Qty: 7 0RF ondansetron 4 mg tablet,disintegrating 4 mg PO Q8H PRN (Reason: nausea and vomiting) Qty: 14 0RF Continued desogestrel-ethinyl estradiol [Isibloom] 0.15-0.03 mg tablet 1 tab PO DAILY Patient Comments: TAKE 1 TABLET BY MOUTH AT THE SAME TIME EVERY DAY Diet/Activity/Treatments Diet: Regular Visit Report/Discharge Packet Instructions: DI for Kidney Infection, DI for Urinary Tract Infection (UTI) Stand Alone Forms: Patient Portal/API, Stroke Signs & Symptoms Discharge Data Attending Provider: Raya Dominguez Admit Date/Time: 02/15/23 10:25 Discharges patient from system. Discharge Date/Time: 02/16/23 13:25
== END 2023-02-16 13:25 | disposition home or self-care (01) ==
LOC: ED 09:56 → AC 10:26
PROVIDERS: Admitting Provider Family Medicine; Emergency Provider Emergency Medicine; Visit Provider Family Medicine
DX: N10 Acute pyelonephritis (principal); E87.6 Hypokalemia; E87.1 Hypo-osmolality and hyponatremia; R73.9 Hyperglycemia, unspecified; B96.20 Unspecified Escherichia coli [E. coli] as the cause of diseases classified elsewhere; B95.1 Streptococcus, group B, as the cause of diseases classified elsewhere; Z20.822 Contact with and (suspected) exposure to COVID-19
CPT/HCPCS: 36415; 74177; 80048; 80053; 81003; 81015; 81025; 83605; 83690; 83735; 84145; 85025; 87040; 87077; 87086; 87147; 87186; 87633; 96361; 96365; 96366; 96367; 96375; 99284; G0378; J0696; J1885; J2060; J2270; J2405; Q9967